=== PATIENT | female | born 1965 ===

== ENCOUNTER 2016-09-05 00:18 | Day surgery (SDC) | payer OTHER ==
[2016-09-05] VITALS (13 sets, daily range): BP systolic 109–126; BP diastolic 58–72; PULSE 56–88; RESP 15–22; O2SAT 93–100
[~2016-09-05] VITALS: Ht 149.9 cm; Wt 63.2 kg
[~2016-09-05 00:18] MED LIST: METO25TA6 PO; MULT1CAP33 PO; VITA400T9 PO
--- NOTE | 2016-09-05 10:53 | NUR ---
Admit AVRIL Admitted to [facility] about 1000. VSS. Denies pain. Tele SB-SR with PVCs and pairs. Difficult IV start. Procedure and recovery reviewed. Verbalizes understanding. Catheter discussed. Awaiting decision and slab polisher.
[2016-09-05 11:11] LABS: BASOPHILS % (AUTO) 0.5 % (0-3); EOSINOPHILS % (AUTO) 2.8 % (0-5); MONOCYTES % (AUTO) 5.8 % (4-12); Mean Corpuscular Hemoglobin 28.5 pg (27.0-35.0); Mean Corpuscular Volume 85.7 fL (81-100); NEUTROPHILS % (AUTO) 55.6 % (40-74); Platelet Count 223 bil/L (150-400)
[2016-09-05 11:26] LABS: INR 0.95 ratio
[2016-09-05] MEDS ORDERED: Heparin 5,000 Units/500 mL NS Premix IV ONE (12:06)
[2016-09-05] MEDS ORDERED: fentaNYL-PF 50 mCg/mL 2 mL Inj ONE (12:25)
[2016-09-05] MEDS ORDERED: Bupivacaine-MPF 0.5% 30 mL Inj ONE (12:55)
[2016-09-05] MEDS ORDERED: 0.9% Sodium Chloride 1,000 ML ONE (13:08)
[2016-09-05] MEDS ORDERED: Heparin 1,000 Unit/mL 10 mL Inj ONE (13:09)
[2016-09-05] MEDS ORDERED: Ondansetron 2 mg/mL 2 mL Inj ONE ×2 (14:11→14:16)
[2016-09-05] MEDS ORDERED: Ondansetron 2 mg/mL 2 mL Inj IVPUSH PRN (14:30)
[2016-09-05] MEDS ORDERED: HYDROcodone-APAP 5-325 mg Tablet PO PRN (14:30)
--- NOTE | 2016-09-05 14:42 | NUR ---
Received Returned from labor standards director about 1430. Nauseated but just had 8mg of zofran. Passed with rest and relaxation techniques. VSS. Denies pain. Right groin stable. Tele SR in 80's. Cont. to monitor per orders.
[2016-09-05] MEDS ORDERED: ASPI-973 PO (15:38)
--- NOTE | 2016-09-05 19:10 | NUR ---
Discharge Pt. taking po well. VSS. Right groin had small bleed when pt. head raised about 1750 and pressure held x 10 min and redressed. No further bleeding. No hematoma. Bedrest complete at 1830. Up to bathroom and in biggs without change in groin. Discharge instructions given, see sheets. Pt. and verbalize understanding. IVs discontinued intact. Discharged ambulatory with and all belongings in no acute distress at 1905.
--- NOTE | 2016-09-06 07:54 | PROCED ---
[address] [address] PROCEDURE NOTE PATIENT: CHRIS NAJERA : 1965 MR#: [id number] ADMIT: 09/05/2016 JOB ID: [id number] DATE OF SERVICE: 09/05/2016 PREOPERATIVE DIAGNOSIS(ES): Right ventricular outflow tract ventricular tachycardia. POSTOPERATIVE DIAGNOSIS(ES): Right ventricular outflow tract ventricular tachycardia, status post ablation. PROCEDURES PERFORMED: 1. Comprehensive electrophysiology study. 2. Three-dimensional electroanatomic mapping using the CARTO 3 system. 3. Right ventricular outflow tract ventricular tachycardia ablation. 4. Fluoroscopy. SURGEON: Mathew La MD, electrophysiology physician. SOIL CHEMIST: Billy Cote PA-C, Bruce Manzo. ANESTHESIA: Gentle dosing of Versed and fentanyl were utilized for this case. 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 After discussion of the risks and benefits of catheter-based mapping ablation, she opted to proceed. PROCEDURAL DESCRIPTION: Following informed consent, the patient was taken to the EP laboratory where she was prepped in the in usual sterile fashion. The right inguinal region was infiltrated with 1% lidocaine. Then, using modified Seldinger technique, one 8, one 7 and one 6-Swazi sheath were inserted into the right femoral vein. Under fluoroscopic guidance, a deflectable decapolar catheter was advanced to the coronary sinus with the most proximal bipolar at the os of the sinus. A Sofi quadripolar catheter was advanced to the RV apex. The GA Smart Touch irrigated ablation catheter was then brought to the field and advanced the RV outflow tract. A three-dimensional electroanatomical mapping of the right ventricular outflow tract was created using the CARTO 3 system. The patient had frequent monomorphic PVCs as well as short bursts of nonsustained VT. This is a left PVC with an inferior axis, downgoing in leads I and L, transitioning at V3 to V4 consistent with RV outflow tract PVCs. Activation mapping was performed and delineated the posterolateral aspect of the RV outflow tract. Pace mapping from this region led to a 12 for 12 match. Ablation lesions were placed in a in this area ultimately leading to a short flurry of clinical PVCs followed by quiescence. We monitored the patient for 30 minutes during which she did not have any more clinical PVCs or VT. During the course of this study, we did complete a comprehensive electrophysiology study with right atrial pacing recording, ventricular pacing recording, and His bundle recording. All catheters and sheaths were removed. Manual pressure was held for hemostasis. The patient was transferred to [facility] for monitored bedrest and discharge. COMPLICATIONS: None. ESTIMATED BLOOD LOSS: Negligible. FINDINGS: 1. Baseline rhythm is sinus with an RR interval of 757 msec, a AL 136 msec, QRS 89 msec, QT 380 msec. 2. Intracardiac intervals: AH interval 90 msec, HV 30 msec. 3. Retrograde conduction: No VA conduction was seen. 4. Antegrade conduction: AV Wenckebach is seen at 340 msec. Fast pathway ERP is 310 msec at a [address] AERP is [address] train. Slow pathway ERP is less than or equal to this value. 5. Posterolateral RV outflow tract PVC and VT status post ablation as described above without recurrence post ablation. IMPRESSION: Successful right ventricular outflow tract premature ventricular contraction ablation. PLAN: 1. Bed rest x4 hours. 2. Aspirin daily for one month. 3. Continue beta blockade. 4. Follow up with myself or Billy Cote in clinic in four weeks. ATTENDING STATEMENT: Mathew Hinkle MD, electrophysiology attending, was present and supervised/performed all aspects of this procedure.
== END 2016-09-05 23:59 | disposition home or self-care (01) ==
LOC: SOUO 00:18
PROVIDERS: ATTEND Internal Medicine Cardiovascular Disease
DX: I47.2 Ventricular tachycardia (principal); I49.3 Ventricular premature depolarization; Z90.2 Acquired absence of lung [part of]
CPT/HCPCS: 36415; 80048; 85025; 85610; 93005; 93621; 93654; 99152; 99153; C1730; C1732; J0131; J1644; J2060; J2250; J3010; J7030